=== PATIENT | male | born 1995 | race Caucasian/White ===

== ENCOUNTER 2017-05-08 19:21 | Emergency (ER) | payer OTHER ==
[2017-05-08] MEDS ORDERED: IBUPROFEN 600 MG TAB PO ONE (19:26)
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
[2017-05-08 19:27] VITALS: RESP 16
[2017-05-08 20:52] VITALS: BP 160/99; PULSE 87; TEMP 98.6; O2SAT 95
== END 2017-05-08 21:02 | disposition home or self-care (01) ==
LOC: EDBD 19:21
DX: S06.0X0A Concussion without loss of consciousness, initial encounter (principal); S80.11XA Contusion of right lower leg, initial encounter; S80.812A Abrasion, left lower leg, initial encounter; V03.90XA Pedestrian on foot injured in collision with car, pick-up truck or van, unspecified whether traffic or nontraffic accident, initial encounter; Y92.410 Unspecified street and highway as the place of occurrence of the external cause; Y93.89 Activity, other specified

== ENCOUNTER 2017-05-10 23:14 | Emergency (ER) | payer OTHER ==
[2017-05-10 23:33] VITALS: RESP 16; TEMP 98.6; O2SAT 96
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
[2017-05-10] MEDS ORDERED: ACETAMINOPHEN 500 MG TAB PO ONE (23:43)
[2017-05-11 00:19] VITALS: BP 143/70; PULSE 58
== END 2017-05-11 00:20 | disposition home or self-care (01) ==
DX: S06.0X0D Concussion without loss of consciousness, subsequent encounter (principal); V03.10XD Pedestrian on foot injured in collision with car, pick-up truck or van in traffic accident, subsequent encounter